=== PATIENT | female | born 1970 ===

== ENCOUNTER 2019-07-24 17:58 | Emergency (ER) | payer OTHER, SELFPAY ==
[2019-07-24 18:09] VITALS: BP 123/77; PULSE 100; RESP 16; TEMP 36.7; O2SAT 92; BMI 30.1
--- NOTE | 2019-07-24 18:12 | XR_ITS ---
WS: [id number] Right ankle, Clinical Data: injury Comparison: None. Findings: No fractures or dislocations are seen. The ankle mortise is normal. The talus and calcaneus are unrem arkable. No soft tissue swelling over the medial or lateral malleolus is seen. XR/XR ankle RT min 3V* [id number] Impression: Negative right ankle.
--- NOTE | 2019-07-24 18:16 | XR_ITS ---
WS: [id number] FOOT RIGHT TECHNIQUE: 3 views of the right foot CLINICAL INFORMATION: injury COMPARISON: None. FINDINGS: No evidence of acute fracture or dislocation. Normal tarsal metatarsal alignment. Normal calcaneus. N ormal visualized talar dome. Plantar calcaneal spurring. No acute findings. XR/XR foot RT min 3V* [id number] IMPRESSION: No acute fractures
--- NOTE | 2019-07-24 18:16 | XR_ITS ---
WS: [id number] TIBIA-FIBULA RIGHT TECHNIQUE: 2 views of the right tibia-fibula CLINICAL INFORMATION: injury COMPARISON: None. FINDINGS: No evidence of acute fracture dislocation. Normal tibiotalar joint. Normal visualized tibia and fibul a. Normal soft tissues. XR/XR tibia fibula RT 2V [id number] IMPRESSION: Normal tibia and fibula.
--- NOTE | 2019-07-24 20:06 | ED_ITS ---
HPI - Extremity Problem General: Chief complaint: Extremity Injury, Lower Stated complaint: right ankle pain Time Seen by Provider: 07/24/19 20:06 Source: patient Mode of arrival: ambulatory Limitations: no limitations History of Present Illness: HPI Narrative: Patient comes in with right ankle pain and foot pain. Patient reports injuring her foot after tripping in the bathroom this morning. Patient reports increased pain throughout the day. Patient appears well. Patient appears in mild to moderate pain. Review of Systems General: Reports: 10 or more systems reviewed and unremarkable except in HPI and below Musc: Reports: joint pain Physical Exam Const: COMMON NORMALS: no apparent distress and oriented x3 GENERAL APPEARANCE: cooperative HENMT: COMMON NORMALS: normocephalic, external ears normal, EAC's normal, TM's normal bilaterally and external nose normal HEAD & SCALP: normal to inspection and normocephalic FACE & SINUS: normal facial exam NOSE: external nose normal GENERAL EAR: hearing not grossly impaired EXTERNAL EAR: Yes external ears normal EXTERNAL AUDITORY CANAL: EAC's normal TYMPANIC MEMBRANE: TM's normal bilaterally MOUTH: oral and palatal mucosa normal THROAT: posterior oropharynx normal Eye: COMMON NORMALS: PERRL and EOMs intact bilaterally PUPIL: Yes PERRL Neck/C-Spine: COMMON NORMALS: full ROM and no lymphadenopathy Lymph: LYMPHATIC: no lymphedema noted Chest: COMMONS NORMALS: inspection of chest normal and palpation of chest normal Resp: COMMON NORMALS: normal respiratory effort and clear to auscultation bilaterally AUSCULTATION: clear to auscultation bilaterally Cardio: COMMON NORMALS: regular rate and regular rhythm RATE: regular rate RHYTHM: regular rhythm GI: COMMON NORMALS: normal to inspection, nondistended, normoactive bowel sounds and non-tender : COMMON NORMALS: Yes no CVA tenderness BLADDER/KIDNEY EXAM: Yes no CVA tenderness Back/Pelvis: COMMON NORMALS: no CVA tenderness and thoracic and lumbar spine normal to inspection Extremity: NARRATIVE EXTREMITY EXAM: Right ankle has some mild medial edema. Tenderness is noted with deep palpation. Pulses are intact and normal cap refill. GENERAL: Yes edema Neuro: COMMON NORMALS: oriented x3, moves all extremities and no focal motor deficits Psych: COMMON NORMALS: mental status grossly normal and cooperative Skin: COMMON NORMALS: no rashes or lesions noted GENERAL SKIN EXAM: no rashes or lesions noted Course Vital Signs: Vital signs: Vital Signs Temperature 98.0 F 07/24/19 18:09 Pulse Rate 89 07/24/19 20:08 Respiratory Rate 18 07/24/19 20:08 Blood Pressure 124/84 07/24/19 20:08 Pulse Oximetry 95 07/24/19 20:08 MDM - Extremity (Nontraumatic) MDM Narrative: Medical decision making narrative: Patient comes in for evaluation of injury that occurred this morning to her right ankle. Exam notes some mild swelling and tenderness. Pulses are intact, tendon function is normal, prompt capillary refill, and good sensation. Differential diagnosis includes fracture, sprain, dislocation, contusion. X-ray was negative for fracture dislocation. Reviewed exam with patient recommended treatment for sprain. Patient reports understanding agreed to plan. Patient was given 1 tablet of hydrocodone for pain. Discharge Plan Discharge Patient Disposition: Home, Self-Care Clinical Impression: Ankle sprain and strain Condition: Stable Prescriptions: New ibuprofen 800 mg tablet 800 mg PO Q8H PRN (Reason: pain) Qty: 20 RF: 0 hydrocodone-acetaminophen 5-325 mg tablet 1 tab PO Q8H PRN (Reason: pain (scale score 7-10)) Qty: 5 RF: 0 Discharge Orders: Discharge Order (Routine); Ordered 07/24/19 Ordered By: Wilbert Ruelas Referrals: RENO LE MD [Family Provider] - Discharge Diet: Usual diet Discharge Activity: Increase activity as tolerated Patient Instructions: Ankle Sprain (ED) Activity Restrictions/Additional Instructions: Activity as tolerated. Use crutches until he can bear weight comfortably. Wear Spike wrap until swelling is resolved. Use stirrup splint until he can run without discomfort. Follow-up with primary care in 1 week. Coding Level of Care Code ED Senior Reservations Agent for Chg Fwd Exam Comprehensive
[2019-07-24 20:08] VITALS: BP 124/84; PULSE 89; RESP 18; O2SAT 95
[2019-07-24] MEDS: HYDROcodone-acetaminophen 5-325 mg Tablet 1 TAB PO (20:32)
[2019-07-24 20:58] VITALS: BP 132/84; PULSE 88; RESP 14; O2SAT 96
== END 2019-07-24 21:00 | disposition home or self-care (01) ==
PROVIDERS: Emergency Provider Nurse Practitioner Family
DX: S93.401A Sprain of unspecified ligament of right ankle, initial encounter (principal); S96.911A Strain of unspecified muscle and tendon at ankle and foot level, right foot, initial encounter; W18.40XA Slipping, tripping and stumbling without falling, unspecified, initial encounter
CPT/HCPCS: 12345; 29515; 73590; 73610; 73630; 99281; 99283